=== PATIENT | female | born 1950 | race Two or more races ===

== ENCOUNTER 2018-03-14 08:59 | Day surgery (SDC) | payer MEDICARE, OTHER ==
--- NOTE | 2018-03-14 07:58 | History and Physical Report ---
DATE: 03/14/2018. CHIEF COMPLAINT AND HISTORY OF CHIEF COMPLAINT: This patient presents with a history of an intractable lumbar radiculopathy. Due to the failure of all therapy, a spinal cord stimulator trial was conducted on 02/04/2018 with greater than 75 percent pain control. Due to the failure of all therapies and the success of the trial, the patient presents today for implantation of a permanent system. PAST MEDICAL HISTORY: Hypertension. PAST SURGICAL HISTORY: Hysterectomy, breast surgery. MEDICATIONS ON ADMISSION: To be provided. ALLERGIES: None. SOCIAL HISTORY: Noncontributory. FAMILY HISTORY: Hypertension and cancer. REVIEW OF SYSTEMS: The patient is appropriate and in no acute distress. The remainder of the systems review shows glasses, headaches, blood pressure problems, bladder dysfunction, reflux, degenerative arthritis. PHYSICAL EXAMINATION: General: Height and weight are not known. Vital Signs: Not available. HEENT: Within normal limits. Lungs: Clear. Heart: Regular rate and rhythm. Abdomen: Nontender. Musculoskeletal: Examination of the musculoskeletal system shows the primary pain to be in the low back with a bilateral, right greater than left, extension. Her motor and sensory field function is intact. There are no obvious sensory deficits and no motor weakness. Ambulation: No assistive device utilized. Neurologic: Cranial nerves are intact. IMPRESSION: LUMBAR RADICULOPATHY, ICD-10 CODE M54.16 AND M54.17. PLAN: The patient is here for implantation of a permanent spinal cord stimulator due to the successful trial and the failure of other therapies. The potential risks, side effects, and complications have been carefully reviewed and discussed. These include spinal cord injury, nerve root injury, spinal headache, and failure of the therapy. We will consider this procedure outpatient; although an overnight stay will be evaluated. JOB NUMBER: [id number] cc: Edna Fung
[2018-03-14] MEDS ORDERED: PROPOFOL 10 MG/ML VIAL IV ONE (09:00)
[2018-03-14] MEDS ORDERED: FLUMAZENIL 1MG/10ML VIAL IV ONE (09:00)
[2018-03-14] MEDS ORDERED: LIDOCAINE 1% W/EPI 1:200,000 MPF 30ML SQ ONE (09:00)
[2018-03-14] MEDS ORDERED: *PACU ONLY* KETAMINE HCL 10 MG/ML (20ML) VIAL IV ONE (09:00)
[2018-03-14] MEDS ORDERED: LIDOCAINE 2% MDV (20MG/ML) 20ML VIAL IV ONE (09:00)
[2018-03-14] MEDS ORDERED: CEFAZOLIN 1G VIAL IM ONE (09:00)
[2018-03-14] MEDS ORDERED: BUPIVACAINE 0.5% W/EPI MPF 30 ML VIAL IVP ONE (09:00)
[2018-03-14] MEDS ORDERED: MIDAZOLAM HCL 2MG/2ML VIAL IV ONE (09:00)
[2018-03-14] MEDS ORDERED: FENTANYL PF 100MCG/2ML VIAL IV ONE ×2 (09:00)
[2018-03-14] MEDS ORDERED: METOCLOPRAMIDE 10 MG TABLET PO PRN (12:39)
[2018-03-14] MEDS ORDERED: ACETAMINOPHEN 325 MG TAB PO PRN ×2 (12:39)
[2018-03-14] MEDS ORDERED: TEMAZEPAM 15 MG CAPSULE PO PRN ×2 (12:39)
[2018-03-14] MEDS ORDERED: SENNOSIDES/DOCUSATE SODIUM UD CAPSULE PO PRN ×2 (12:39)
[2018-03-14] MEDS ORDERED: METOCLOPRAMIDE HCL 10 MG/2 ML VIAL IVP PRN (12:39)
[2018-03-14] MEDS ORDERED: AL HYDROX/MAG HYDROX 30ML UD PO PRN (12:39)
[2018-03-14] MEDS ORDERED: OXYCODONE/APAP 10MG-325MG TABLET PO PRN (12:39)
[2018-03-14] MEDS ORDERED: DIPHENHYDRAMINE HCL 25 MG CAPSULE PO PRN ×2 (12:39)
[2018-03-14] MEDS ORDERED: HYDROMORPHONE HCL 2 MG/ML VIAL IM PRN ×2 (12:39)
[2018-03-14] MEDS ORDERED: DIPHENHYDRAMINE HCL 50 MG/ML VIAL IVP PRN (12:39)
[2018-03-14] MEDS: MECLIZINE 25 MG TABLET PO ONE (12:41)
[2018-03-14] MEDS: CEFAZOLIN 2 Gram 2 GM/50 ML BAG IVPB ONE (12:41)
[2018-03-14] MEDS: ACETAMINOPHEN 1,000 MG/100 ML BTL IV ONE (12:42)
[2018-03-14] MEDS: DIPHENHYDRAMINE HCL 50 MG/ML VIAL IVP PRN (12:43)
[2018-03-14] MEDS: FAMOTIDINE 20MG TABLET PO ONE (12:51)
[2018-03-14] MEDS: METOCLOPRAMIDE 10 MG TABLET PO ONE (12:51)
[2018-03-14] MEDS: OXYCODONE/APAP 10MG-325MG TABLET PO PRN (13:50)
[2018-03-14] MEDS ORDERED: LISINOPRIL 10 MG TABLET PO SCH (17:00)
[2018-03-14] MEDS ORDERED: PANTOPRAZOLE SODIUM 40 MG TABLET PO SCH (17:00)
[2018-03-14] MEDS ORDERED: AMLODIPINE BESYLATE 5MG TAB PO SCH (17:00)
[2018-03-14] MEDS ORDERED: HYDROCHLOROTHIAZIDE 12.5 MG CAPSULE PO SCH (17:00)
[2018-03-14] MEDS ORDERED: CARVEDILOL 12.5 MG TABLET PO SCH (17:30)
[2018-03-14] MEDS ORDERED: CEFAZOLIN 2 Gram 2 GM/50 ML BAG IVPB SCH (18:00)
--- NOTE | 2018-03-14 21:31 | Operative Note - Ferro ---
DATE OF SURGERY: 03/14/18 PREOPERATIVE DIAGNOSES: LUMBAR RADICULOPATHY, ICD-10 CODE = M54.16 AND M54.17. SURGERY: 1. FLUOROSCOPIC-GUIDED RIGHT EPIDURAL ACCESS T12-L1. PLACEMENT OF SPINAL CORD STIMULATOR LEAD 1, A [employer] INFINION 16 WITH 6 ELECTRODES POSITIONED RIGHT T7. 2. FLUOROSCOPIC-GUIDED EPIDURAL ACCESS RIGHT T11-12, PLACEMENT OF SPINAL CORD STIMULATOR LEAD 2, A [employer] INFINION 16 WITH 6 ELECTRODES POSITIONED LEFT T7. 3. COMPLEX PROGRAMMING OF LEAD 1, OVER 20 MINUTES FOLLOWED BY COMPLEX PROGRAMMING OF LEAD 2, OVER 20 MINUTES. 4. INCISION, SUBCUTANEOUS DISSECTION, AND ANCHORING OF LEAD 1 AND LEAD 2 TO SUPRASPINOUS FASCIA USING A [employer] LOCKING ANCHOR. 5. INCISION, SUBCUTANEOUS DISSECTION, AND CREATION OF SUBCUTANEOUS POUCH AT RIGHT POSTERIOR GLUTEAL MARGIN FOR PLACEMENT OF GENERATOR IDENTIFIED A [employer] PROGRAMMABLE AND RECHARGEABLE, WAVE-[employer] COMPLIANCE MANAGER. 6. TUNNELING BETWEEN POUCHES, PLACEMENT OF EXTERNAL PORTION OF LEAD 1 AND LEAD 2 INTO GENERATOR POUCH, EACH LEAD INTERFACED WITH THE GENERATOR. 7. PLACEMENT OF GENERATOR POUCH SECURING TO POSTERIOR FASCIA WITH NONABSORBABLE SUTURE WITH PLACEMENT OF LEADS INTO POUCH, CLOSURE OF BOTH INCISIONS WITH VICRYL FOR FASCIA, RUNNING SUBCUTICULAR VICRYL FOR SKIN. DERMABOND CLOSURE. 8. COMPLEX RECOVERY ROOM PROGRAMMING INTERNAL GENERATOR HOME USE, TWO STIMULATORS, 20 MINUTES. SURGEON: STEPAN FRASER D.O. ANESTHESIA: LOCAL SEDATION. ANESTHESIA PROVIDER: TE GONZÁLES CRNA. INDICATIONS: This patient presents with a history of intractable lumbar radiculopathy. Due to the failure of therapies, a spinal cord stimulator trial was conducted with 75 to 85% pain control. Due to the failure of all therapies and the success of the trial, she presents today for implantation of a permanent system. SURGERY: Intravenous line, vital sign monitoring, IV sedation. Prepped and draped sterile technique. Under imaging with the patient prone, the epidural interspace at T11-12 and 12-1 were identified and marked on the right. Skin infiltrated and using two separate curved Epimed needles with a loss-of- resistance into the space. At 12-1, spinal cord stimulator lead 1, a [employer] Infinion 16 with 6 electrodes under imaging navigated to T7 right of midline. With epidural access, same technique at 11-12, spinal cord stimulator lead 2, a [employer] Infinion 16 with 6 electrodes, positioned left of midline at T7. Complex programming of lead 1 over 20 minutes followed by complex programming of lead 2 over 20 minutes resulting in a complete pattern of stimulation across the back and into the legs, patient indicating we were in all the areas of the pain. The skin above and below both needles was infiltrated with local, incision made, and subcutaneous dissection was conducted into the supraspinous fascia. Each of the leads was than anchored to the supraspinous fascia with a [employer] locking anchor. At the right posterior gluteal margin, a site picked by the patient for the generator, skin infiltrated, incision made and subcutaneous dissection was conducted to form a pouch of suitable size and depth for the generator identified as a [employer] programmable, rechargeable Wave-Assembly Lead Person. A tunneling tool was then used to carry the leads into the generator pouch and then each lead was interfaced to the generator. Antibiotic irrigation and Bovie for hemostasis. The generator was placed into the pouch and secured to the posterior fascia with a nonabsorbable suture. The incisions were then closed with Vicryl for fascia and a running subcuticular Vicryl for skin, Dermabond closure. She was transported to the Recovery Room stable showing no side-effects from the procedure or the sedation. She was monitored until stable and then discharged to the Floor. She will be monitored and then evaluated for possible discharge or an overnight stay. IN THE MORNING, DISCHARGE INSTRUCTIONS: 1. The sites will remain clean and dry. No showering or bathing in any way that would disrupt dressings. If it happens, contact the Clinic. 2. Standard medications will be resumed including Levaquin, the antibiotic 500 mg once a day for 14 days. 3. She should limit bend, lift, push, pull for the next two to four weeks. The office will contact the patient in 24 to 48 hours to set up an incision check evaluation in 7 to 10 days. At that point, we will evaluate the incisions and consider increasing activity levels. All other instructions provided, numbers to contact with problems given. She will be discharged in the morning. cc: Dr. Starks JOB NUMBER: [id number] [facility]
[2018-03-14] MEDS ORDERED: 0.9 % SODIUM CHLORIDE 10ML SYR IVP SCH (22:00)
--- NOTE | 2018-03-15 08:38 | RADIOLOGY REPORT ---
EXAM: THORACIC SPINE HISTORY: PAIN PUMP PLACEMENT. TECHNIQUE: A single portable view of the thoracic spine was performed. FINDINGS: The stimulator lead tips are at the T7 level. IMPRESSION: THE STIMULATOR LEAD TIPS ARE AT THE T7 LEVEL. JOB NUMBER: [id number] MTDD
== END 2018-03-14 15:40 | disposition home or self-care (01) ==
LOC: SUR 08:59 → MEDSURG 12:27 → SUR 15:40
PROVIDERS: ATTEND Pain Medicine Interventional Pain Medicine
DX: M54.16 Radiculopathy, lumbar region (principal); M54.17 Radiculopathy, lumbosacral region; I10 Essential (primary) hypertension
CPT/HCPCS: 63685; 63650 ×2; 00300; 95972; 72020; J3010; J0690; C1820; C1883; J1200